=== PATIENT | female | born 1980 | race Caucasian/White ===

== ENCOUNTER 2016-09-01 13:40 | Emergency (ER) | payer OTHER ==
[2016-09-01 14:00] VITALS: BP 122/74
--- NOTE | 2016-09-01 14:03 | EKG ---
[address] [address] Test Date: 2016-09-01 Test Time: 14:02:00 Pat Name: MIRTHA RODAS Department: Room: Gender: F Automation Engineer: : [id number] Requested By: TAMAR PATINO Order Number: [id number] Reading MD: Measurements Intervals [place] Rate: 71 P: 69 KS: 140 QRS: 59 QRSD: 82 T: 39 QT: 384 QTc: 417 Interpretive Statements SINUS RHYTHM NORMAL ECG RI6.01 Unconfirmed report No previous ECG available for comparison
[2016-09-01 14:52] LABS: HEMOGLOBIN ISTAT 12.2 gm/dL; POTASSIUM ISTAT 3.7 mmol/L (3.5-5.0)
--- NOTE | 2016-09-01 14:56 | ED.ADGEN ---
Past History Past Medical History: No Pertinent History Past Surgical History: No Surgical History Alcohol Use: Occasionally Drug Use: None Adult General HPI HPI Patient is a 36-year-old female presents emergency department complaining of left arm pain which she describes as a "tingling" that starts at the top of her shoulder and runs down her lateral arm. She has had since this morning. She states that she has had it intermittently in the past that usually resolves with aspirin today did not. She denies any other recent illness or injury to the area. Review of Systems Review of Systems Constitutional: Denies fever or chills [] Eyes: Denies change in visual acuity, redness, or eye pain [] HENT: Denies nasal congestion or sore throat [] Respiratory: Denies cough or shortness of breath [] Cardiovascular: No additional information not addressed in HPI [] GI: Denies abdominal pain, nausea, vomiting, bloody stools or diarrhea [] : Denies dysuria or hematuria [] Musculoskeletal: Denies back pain or joint pain [] Integument: Denies rash or skin lesions [] Neurologic: Denies headache, focal weakness or sensory changes [] Endocrine: Denies polyuria or polydipsia [] Physical Exam Physical Exam Constitutional: Well developed, well nourished, no acute distress, non-toxic appearance. [] HENT: Normocephalic, atraumatic, bilateral external ears normal, oropharynx moist, no oral exudates, nose normal. [] Eyes: PERRLA, EOMI, conjunctiva normal, no discharge. [] Neck: Normal range of motion, no tenderness, supple, no stridor. [] Cardiovascular:Heart rate regular rhythm, no murmur [] Lungs & Thorax: Bilateral breath sounds clear to auscultation [] Abdomen: Bowel sounds normal, soft, no tenderness, no masses, no pulsatile masses. [] Skin: Warm, dry, no erythema, no rash. [] Back: No tenderness, no CVA tenderness. [] Extremities: No tenderness, no cyanosis, no clubbing, ROM intact, no edema. [] Neurologic: Alert and oriented X 3, normal motor function, normal sensory function, no focal deficits noted. [] Psychologic: Affect normal, judgement normal, mood normal. [] Current Patient Data Vital Signs Vital Signs Date Time Temp Pulse Resp B/P Pulse Ox O2 Delivery O2 Flow Rate FiO2 09/01/16 14:00 98.9 81 18 99 Room Air Lab Results Laboratory Tests Test 09/01/16 14:48 POC Hemoglobin 12.2gm/dL POC Hematocrit 36% POC Sodium 144mmol/L (135-145) POC Potassium 3.7mmol/L (3.5-5.0) POC Chloride 106mmol/L (98-110) POC Total CO2 23mmol/L (23-32) Anion Gap 19mmol/L (6-14) H POC Blood Urea Nitrogen 9mg/dL (8-26) POC Creatinine 0.5mg/dL (0.5-1.4) Glucose Level 90mg/dL (60-99) POC Ionized Calcium (Pat) 1.17mmol/L (1.13-1.32) EKG EKG EKG interpreted by me, normal sinus rhythm, 71 beats for minute, no ST segment elevation, normal axis. [] Radiology/Procedures Radiology/Procedures [] Course & Med Decision Making Course & Med Decision Making Pertinent Labs and Imaging studies reviewed. (See chart for details) Overall, the patient a reassuring exam and workup. Emergency department. She will be discharged home supportive care and follow-up instructions. [] Final Impression Final Impression Left arm paresthesia [] Problems: Dragon Disclaimer Dragon Disclaimer This electronic medical record was generated, in whole or in part, using a voice recognition dictation system. TAMAR PATINO MD Sep 01, 2016 14:56
== END 2016-09-01 15:10 | disposition home or self-care (01) ==
LOC: ER 13:40
DX: R20.2 Paresthesia of skin (principal); M79.602 Pain in left arm
CPT/HCPCS: 80047; 93005; 99283-25